=== PATIENT | female | born 1980 | race American Indian/Alaskan Native ===

== ENCOUNTER 2018-10-03 08:12 | Emergency (ER) | payer SELFPAY ==
[2018-10-03] MEDS ORDERED: NORCO 5/325 PO STA (09:03)
--- NOTE | 2018-10-03 11:20 | XRay Report ---
Lumbar spine 3 views: X. History: Low back pain with radiculopathy. Findings: Normal height of vertebral bodies and intervertebral disc. Sclerotic articular surfaces with early degenerative changes L4-L5 and S1. No fracture. No soft tissue calcification. Impression: Early degenerative changes L4-5 L5-S1.
--- NOTE | 2018-10-03 11:58 | Emergency Department Report ---
ED General Adult HPI - General Chief complaint: Pain General Stated complaint: R SIDE OF FACE SWOLLEN/R SIDE PAIN Time Seen by Provider: 10/03/18 09:02 Source: patient Mode of arrival: Ambulatory Limitations: No Limitations - History of Present Illness Initial comments: 37-year-old [place] female to emergency Department complaining of right lower molar pain and swelling which has been progressively worsening over the last 1-2 days. No drainage or discharge is present. Pain is dull and throbbing, worse with palpation and eating. She reports no odynophagia or dysphagia. No change in her voice. No trauma has been involved. She also has been having some issues with pain to her right lower back region and having shooting pain down her right right buttocks. She was down to her thigh. Pain is sharp and lancinating in nature. But not associated with any weakness or swelling. There is no trauma to her back or leg as well. No deformities noted. Severity scale (0 -10): 6 Consistency: constant Improves with: none Worsens with: none Treatments Prior to Arrival: none - Related Data Previous Rx's Medication Instructions Recorded Last Taken Type Amoxicillin [Amoxicillin TAB] 875 mg PO BID #20 tablet 10/03/18 Unknown Rx Chlorhexidine Mouthwash [Peridex] 15 ml MM BID #473 bottle 10/03/18 Unknown Rx Ketorolac [Toradol] 10 mg PO Q6H PRN #15 tablet 10/03/18 Unknown Rx Lidocaine Viscous 2% 5 ml MM Q3H PRN #120 udc 10/03/18 Unknown Rx Allergies Allergy/AdvReac Type Severity Reaction Status Date / Time No Known Allergies Allergy Unverified 10/03/18 08:14 ED Review of Systems ROS: Stated complaint: R SIDE OF FACE SWOLLEN/R SIDE PAIN Other details as noted in HPI Constitutional: denies: chills, fever Eyes: denies: eye pain, eye discharge, vision change ENT: dental pain. denies: ear pain, throat pain Respiratory: denies: cough, shortness of breath, wheezing Cardiovascular: denies: chest pain, palpitations Endocrine: no symptoms reported Gastrointestinal: denies: abdominal pain, nausea, diarrhea Genitourinary: denies: urgency, dysuria, discharge Musculoskeletal: back pain. denies: joint swelling, arthralgia Skin: denies: rash, lesions Neurological: denies: headache, weakness, paresthesias Psychiatric: denies: anxiety, depression Hematological/Lymphatic: denies: easy bleeding, easy bruising ED Past Medical Hx - Past Medical History Previous Medical History?: No - Surgical History Past Surgical History?: No - Social History Smoking Status: Never Smoker Substance Use Type: None - Medications Home Medications: Home Medications Medication Instructions Recorded Confirmed Last Taken Type Amoxicillin [Amoxicillin TAB] 875 mg PO BID #20 tablet 10/03/18 Unknown Rx Chlorhexidine Mouthwash [Peridex] 15 ml MM BID #473 bottle 10/03/18 Unknown Rx Ketorolac [Toradol] 10 mg PO Q6H PRN #15 tablet 10/03/18 Unknown Rx Lidocaine Viscous 2% 5 ml MM Q3H PRN #120 udc 10/03/18 Unknown Rx ED Physical Exam - General Limitations: No Limitations General appearance: alert, in no apparent distress - Head Head exam: Present: atraumatic, normocephalic - Eye Eye exam: Present: normal appearance, PERRL, EOMI - ENT ENT exam: Present: normal exam, mucous membranes moist, TM's normal bilaterally, other (RIGHT LOWER DENTAL PAIN WITH SWELLING AJACENT TO TOOTH 30. AIRWAY PATENT. ) - Neck Neck exam: Present: normal inspection - Respiratory Respiratory exam: Present: normal lung sounds bilaterally. Absent: respiratory distress, rales, stridor, chest wall tenderness, accessory muscle use, decreased breath sounds, prolonged expiratory - Cardiovascular Cardiovascular Exam: Present: regular rate, normal rhythm. Absent: systolic murmur, diastolic murmur, rubs, gallop - GI/Abdominal GI/Abdominal exam: Present: soft, normal bowel sounds - Extremities Exam Extremities exam: Present: normal inspection - Back Exam Back exam: Present: normal inspection, tenderness, muscle spasm, paraspinal tenderness. Absent: CVA tenderness (R), CVA tenderness (L) - Neurological Exam Neurological exam: Present: alert, oriented X3, CN II-XII intact, normal gait - Psychiatric Psychiatric exam: Present: normal affect, normal mood - Skin Skin exam: Present: warm, dry, intact, normal color. Absent: rash ED Course Vital Signs 10/03/18 08:14 Temperature 98.4 F Pulse Rate 83 Respiratory 18 Rate Blood Pressure 143/93 O2 Sat by Pulse 99 Oximetry Critical care attestation.: If time is entered above; I have spent that time in minutes in the direct care of this critically ill patient, excluding procedure time. ED Disposition Clinical Impression: Lumbago with sciatica, right side, Dentalgia Disposition: TO HOME OR SELFCARE Is pt being admited?: No Does the pt Need Aspirin: No Condition: Stable Instructions: Dental Abscess (ED), Lumbar Radiculopathy (ED), Toothache (ED) Prescriptions: Amoxicillin [Amoxicillin TAB] 875 mg PO BID #20 tablet Lidocaine Viscous 2% 5 ml MM Q3H PRN #120 udc PRN Reason: Pain, Moderate (4-6) Chlorhexidine Mouthwash [Peridex] 15 ml MM BID #473 bottle Ketorolac [Toradol] 10 mg PO Q6H PRN #15 tablet PRN Reason: Pain Referrals: [facility] [Provider Group] - 2-3 Days
[2018-10-03 12:24] VITALS: BP 140/90
== END 2018-10-03 12:23 | disposition home or self-care (01) ==
LOC: ED 08:12
DX: M54.41 Lumbago with sciatica, right side (principal); K08.89 Other specified disorders of teeth and supporting structures
CPT/HCPCS: 72100; 99283